=== PATIENT | male | born 1965 | race Caucasian/White ===

== ENCOUNTER 2021-11-09 11:02 | Emergency (ER) | payer BC ==
[~2021-11-09] VITALS: Ht 190.5 cm; Wt 97.5 kg
[2021-11-09 11:12] VITALS: BP_SYST 132
--- NOTE | 2021-11-09 11:20 | NUR ---
PT TRIAGED AND PLACED IN ED LOBBY FOR AVAILABLE BED IN MAIN ED
--- NOTE | 2021-11-09 12:15 | NUR ---
Assessed patient at bedside. Patient presents stable vital signs
--- NOTE | 2021-11-09 12:45 | NUR ---
Md at bedside to assess.
--- NOTE | 2021-11-09 13:12 | NUR ---
Patient to ER bed 2 to gown for evaluation. Side rails up. Report given to MARY ASKEW.
[2021-11-09 14:00] VITALS: BP_SYST 125
[2021-11-09] MEDS ORDERED: IBUPROFEN 600 MG TABLET PO ONE (14:15)
--- NOTE | 2021-11-09 14:30 | NUR ---
Discharge instructions provided. Pt verbalized understanding.
[2021-11-09] MEDS ORDERED: IBUP-1969 PO (14:34)
== END 2021-11-09 14:00 | disposition home or self-care (01) ==
LOC: SED 11:02
DX: M79.672 Pain in left foot (principal)
CPT/HCPCS: 99283